=== PATIENT | female | born 1980 | race Two or more races ===

== ENCOUNTER 2022-06-14 15:25 | Emergency (ER) | payer SELFPAY ==
[~2022-06-14] VITALS: Ht 160 cm; Wt 60.0 kg
[2022-06-14 15:41] VITALS: BP 166/100
[2022-06-14] MEDS ORDERED: DEXAMETHASONE 4MG TABLET PO ONE (17:15)
[2022-06-14] MEDS ORDERED: P50 MT (18:07)
[2022-06-14] MEDS ORDERED: ALBU6.7H3 INH (18:08)
[2022-06-14] MEDS: ALBUTEROL (0.083%) 2.5MG/3ML NEB HHN SCH ×2 (18:29→18:41)
== END 2022-06-14 18:38 | disposition home or self-care (01) ==
LOC: ER 15:52
DX: J45.909 Unspecified asthma, uncomplicated (principal)
CPT/HCPCS: 94640; 99283; J8540; Z7610